=== PATIENT | male | born 1970 | race Caucasian/White ===

== ENCOUNTER → 2016-10-22 | Outpatient (CLI) | payer BC ==
[2016-10-22 17:00] LABS: CHLORIDE,CL 107 mmol/L (98-110); SODIUM,NA 140 mmol/L (136-146)
== END ==
LOC: MW.CHFP 16:24
PROVIDERS: ATTEND Nurse Practitioner Family
DX: R10.9 Unspecified abdominal pain (principal)
CPT/HCPCS: 36415; 80053; 82150; 83516; 83690; 84443; 85027; 86677

== ENCOUNTER → 2016-10-23 | Outpatient (CLI) | payer BC | LOC: MW.CHFP 14:45 | PROVIDERS: ATTEND Nurse Practitioner Family | DX: R19.5 Other fecal abnormalities (principal) | CPT/HCPCS: 82270; 83630; 87046; 87328; 87329; 87899 ==

== ENCOUNTER → 2016-10-24 | Outpatient (CLI) | payer BC | LOC: MW.CHFP 13:55 | PROVIDERS: ATTEND Nurse Practitioner Family | DX: R19.5 Other fecal abnormalities (principal) | CPT/HCPCS: 82272 ==

== ENCOUNTER 2017-11-24 22:20 | Emergency (ER) | payer SELFPAY ==
[2017-11-24] MEDS ORDERED: methylPREDNISolone Sodium Succinate 125 MG/2 ML SDV IM ONE (22:48)
[2017-11-24] MEDS ORDERED: Albuterol/Ipratropium 3.0-0.5 MG/3 ML Neb Soln NEB ONE (22:48)
--- NOTE | 2017-11-24 22:48 | EDM.PDOC ---
ED HPI GENERAL MEDICAL PROBLEM - General Chief Complaint: Respiratory Problem Stated Complaint: ASTHMA ATTACK Time Seen by Provider: 11/24/17 22:48 Source of Information: Reports: Patient - History of Present Illness INITIAL COMMENTS - FREE TEXT/NARRATIVE: HISTORY AND PHYSICAL: History of present illness: []Patient with known asthma who presents with asthma exacerbation chest is tight short of breath with exertion no chest pain or diaphoresis no fever nausea vomiting chills sweats Review of systems: As per history of present illness and below otherwise all systems reviewed and negative. Past medical history: As per history of present illness and as reviewed below otherwise noncontributory. Surgical history: As per history of present illness and as reviewed below otherwise noncontributory. Social history: No reported history of drug or alcohol abuse. Family history: As per history of present illness and as reviewed below otherwise noncontributory. Physical exam: HEENT: Atraumatic, normocephalic, pupils reactive, negative for conjunctival pallor or scleral icterus, mucous membranes moist, throat clear, neck supple, nontender, trachea midline. Lungs: Clear to auscultation, breath sounds equal bilaterally, chest nontender. post DuoNeb and Solu-Medrol Heart: S1S2, regular, negative for clicks, rubs, or JVD. Abdomen: Soft, nondistended, nontender. Negative for masses or hepatosplenomegaly. Negative for costovertebral tenderness. Pelvis: Stable nontender. Genitourinary: Deferred. Rectal: Deferred. Extremities: Atraumatic, negative for cords or calf pain. Neurovascular unremarkable. Neuro: Awake, alert, oriented. Cranial nerves II through XII unremarkable. Cerebellum unremarkable. Motor and sensory unremarkable throughout. Exam nonfocal. Diagnostics: [ chest 1 view ] Therapeutics: [ DuoNeb Solu-Medrol 125 mg IM ]DuoNeb 4 times a day #40 no refill Medrol Dosepak R PW Patient has HFA All up with primary care as needed Impression: [ asthma exacerbation resolved -patient much improved posttreatment ] Definitive disposition and diagnosis as appropriate pending reevaluation and review of above. head Pain Score (Numeric/FACES): 8 - Related Data Allergies Allergy/AdvReac Type Severity Reaction Status Date / Time No Known Allergies Allergy Verified 06/28/16 00:46 Home Meds: Home Meds Albuterol Sulfate [Proventil Hfa] 6.7 gm ASDIRECTED 06/28/16 [History] Past Medical History Respiratory History: Reports: Asthma - Past Surgical History HEENT Surgical History: Reports: Tonsillectomy Male Surgical History: Reports: Vasectomy Social & Family History - Family History Family Medical History: Noncontributory - Tobacco Use Smoking Status *Q: Never Smoker - Caffeine Use Caffeine Use: Reports: None - Alcohol Use Days Per Week of Alcohol Use: 5 Number of Drinks Per Day: 3 Total Drinks Per Week: 15 - Recreational Drug Use Recreational Drug Use: No - Living Situation & Occupation Occupation: Employed ED ROS GENERAL - Review of Systems Review Of Systems: ROS reveals no pertinent complaints other than HPI. ED EXAM, GENERAL - Physical Exam Exam: See Below Course - Vital Signs Last Recorded V/S: Last Vital Signs Temp 98.6 F 11/24/17 22:20 Pulse 100 11/24/17 23:18 Resp 19 11/24/17 23:18 BP 115/77 11/24/17 23:18 Pulse Ox 99 11/24/17 23:18 - Orders/Labs/Meds Orders: Active Orders 24 hr Category Date Time Status RT Aerosol Therapy [RC] ASDIRECTED Care 11/24/17 22:48 Active Chest 1V Frontal [CR] Stat Exams 11/24/17 22:48 Taken Meds: Medications Discontinued Medications Generic Name Dose Route Start Last Admin Trade Name Radha PRN Reason Stop Dose Admin Albuterol/Ipratropium 3 ml 11/24/17 22:48 11/24/17 23:12 Duoneb 3.0-0.5 Mg/3 Ml NEB 11/24/17 22:49 3 ml ONETIME ONE Administration Methylprednisolone Sodium Succinate 125 mg 11/24/17 22:48 11/24/17 23:08 Solu-Medrol IM 11/24/17 22:49 125 mg ONETIME ONE Administration Departure - Departure Time of Disposition: 23:26 Disposition: Home, Self-Care 01 Condition: Good Clinical Impression: Asthma exacerbation - Discharge Information Referrals: PCP,Unknown [Primary Care Provider] - Forms: ED Department Discharge Additional Instructions: The following information is given to patients seen in the emergency department who are being discharged to home. This information is to outline your options for follow-up care. We provide all patients seen in our emergency department with a follow-up referral. The need for follow-up, as well as the timing and circumstances, are variable depending upon the specifics of your emergency department visit. If you don't have a primary care physician on staff, we will provide you with a referral. We always advise you to contact your personal physician following an emergency department visit to inform them of the circumstance of the visit and for follow-up with them and/or the need for any referrals to a consulting specialist. The emergency department will also refer you to a specialist when appropriate. This referral assures that you have the opportunity for follow-up care with a specialist. All of these measure are taken in an effort to provide you with optimal care, which includes your follow-up. Under all circumstances we always encourage you to contact your private physician who remains a resource for coordinating your care. When calling for follow-up care, please make the office aware that this follow-up is from your recent emergency room visit. If for any reason you are refused follow-up, please contact the [facility] emergency department at and asked to speak to the emergency department charge nurse. - My Orders Last 24 Hours: My Active Orders 11/24/17 22:48 RT Aerosol Therapy [RC] ASDIRECTED Chest 1V Frontal [CR] Stat - Assessment/Plan Last 24 Hours: My Active Orders 11/24/17 22:48 RT Aerosol Therapy [RC] ASDIRECTED Chest 1V Frontal [CR] Stat
[2017-11-24 23:18] VITALS: BP 115/77
--- NOTE | 2017-11-25 15:34 | CR ---
EXAM DATE: 11/24/17 PATIENT'S AGE: 47 Patient: SHINE WATSON Facility: [place], [place] Site . Site : [id number] Study: XRay Chest [id number] 11:18:10 PM Ordering Physician: Doctor Paz Final Report: INDICATION: sob TECHNIQUE: Chest 1 view. COMPARISON: 06/28/16 FINDINGS: Cardiovascular and mediastinum: Heart size and vasculature are normal in caliber and appearance. Mediastinum is within normal limits. Lungs and pleural space: Lungs are clear. No sign of infiltrate or mass. No sign of pleural effusion. No pneumothorax. Bones and soft tissues: No significant findings. IMPRESSION: Unremarkable chest. Dictated by: Van Monge MD @ 11/24/2017 23:30:23 (Electronic Signature) Report Signed by Proxy. MING
== END 2017-11-24 23:34 | disposition home or self-care (01) ==
LOC: MW.ED 22:20
DX: J45.901 Unspecified asthma with (acute) exacerbation (principal); Z79.899 Other long term (current) drug therapy
CPT/HCPCS: 71045; 94640; 96372; 99285; J2930

== ENCOUNTER 2021-08-24 17:31 | Observation (INO) | payer OTHER ==
[2021-08-24] MEDS ORDERED: Nitroglycerin 0.4 MG Tab.SL SL PRN (17:56)
[2021-08-24] MEDS ORDERED: Aspirin 81 MG Tab.Chew PO ONE (17:56)
[2021-08-24 18:35] LABS: BLOOD UREA NITROGEN,BUN 8 mg/dL (7.0-18.0); CARBON DIOXIDE,CO2 20.9 mmol/L (21.0-32.0); CHLORIDE,CL 89 mmol/L (98-107); GLUCOSE RANDOM 99 mg/dL (74-106); LIPASE 69 U/L (73-393); POTASSIUM,K 3.5 mmol/L (3.5-5.1); SODIUM,NA 124 mmol/L (136-148)
[2021-08-24] MEDS ORDERED: Sodium Chloride 0.9% 1,000 ML IV ONE (18:52)
[2021-08-24] MEDS ORDERED: Calcium Carbonate 500 MG Tab.Chew PO ONE (18:55)
[2021-08-24] MEDS ORDERED: Thiamine 100 MG in Sodium Chloride 0.9% 100 ML IV SCH (21:00)
[2021-08-24] MEDS ORDERED: LORazepam 2 MG/ML SDV IVPUSH PRN (21:02)
[2021-08-24 21:25] LABS: BLOOD UREA NITROGEN,BUN 7 mg/dL (7.0-18.0); CARBON DIOXIDE,CO2 22.6 mmol/L (21.0-32.0); CHLORIDE,CL 94 mmol/L (98-107); GLUCOSE RANDOM 94 mg/dL (74-106); POTASSIUM,K 4.6 mmol/L (3.5-5.1); SODIUM,NA 127 mmol/L (136-148)
[2021-08-24] MEDS ORDERED: Thiamine 200 MG/2 ML MDV IVPUSH ONE (22:20)
[2021-08-24] MEDS: Folic Acid 1 MG Tab PO SCH (22:35)
[2021-08-25 00:59] LABS: BLOOD UREA NITROGEN,BUN 7 mg/dL (7.0-18.0); CARBON DIOXIDE,CO2 27.9 mmol/L (21.0-32.0); CHLORIDE,CL 100 mmol/L (98-107); GLUCOSE RANDOM 84 mg/dL (74-106); POTASSIUM,K 4.7 mmol/L (3.5-5.1); SODIUM,NA 134 mmol/L (136-148)
[2021-08-25 07:02] LABS: BLOOD UREA NITROGEN,BUN 6 mg/dL (7.0-18.0); CARBON DIOXIDE,CO2 23.3 mmol/L (21.0-32.0); CHLORIDE,CL 101 mmol/L (98-107); GLUCOSE RANDOM 78 mg/dL (74-106); POTASSIUM,K 3.9 mmol/L (3.5-5.1); SODIUM,NA 134 mmol/L (136-148)
[2021-08-25] MEDS: Folic Acid 1 MG Tab PO SCH (08:02)
[2021-08-25] MEDS ORDERED: Albuterol/Ipratropium 3.0-0.5 MG/3 ML Neb Soln NEB PRN (08:39)
[2021-08-25] MEDS ORDERED: Acetaminophen 325 MG Tab PO PRN (08:39)
[2021-08-25] MEDS ORDERED: Ondansetron 4 MG/2 ML SDV IVPUSH PRN (08:39)
[2021-08-25] MEDS ORDERED: Ondansetron 4 MG Tab.DIS PO PRN (08:39)
[2021-08-25] MEDS ORDERED: Albuterol 8 GM Inhaler INH PRN (08:42)
[2021-08-25] MEDS ORDERED: Pantoprazole 40 MG in Sodium Chloride 0.9% 10 ML IVPUSH SCH (09:00)
[2021-08-25] MEDS ORDERED: Enoxaparin 40 MG/0.4 ML Syringe SUBCUT SCH (09:00)
[2021-08-25 12:09] VITALS: BP 118/86; PULSE 71
[2021-08-25] MEDS ORDERED: Thiamine 200 MG/2 ML MDV IVPUSH SCH (18:00)
[2021-08-25] MEDS ORDERED: Montelukast 10 MG Tab PO SCH (21:00)
== END 2021-08-25 14:45 | disposition home or self-care (01) ==
LOC: MW.ED 17:31 → MW.MS 19:52
PROVIDERS: ADMIT Internal Medicine; ATTEND Internal Medicine
DX: R07.89 Other chest pain (principal); E87.1 Hypo-osmolality and hyponatremia; U07.1 COVID-19; J32.9 Chronic sinusitis, unspecified; J45.909 Unspecified asthma, uncomplicated; F10.20 Alcohol dependence, uncomplicated; Z79.899 Other long term (current) drug therapy; Z98.890 Other specified postprocedural states
CPT/HCPCS: 36415; 71045; 80048; 80053; 83690; 83735; 84100; 84484; 85025; 87635; 93005; 96372; 96374; 96375; 99285; A9270; C9113; G0378; J1650; J3411; J7030; U0002

== ENCOUNTER 2024-08-11 08:37 | Emergency (ER) | payer OTHER ==
[2024-08-11 09:24] VITALS: PULSE 84
[2024-08-11] MEDS: Losartan 50 MG Tab PO ONE (10:51)
[2024-08-11 10:53] VITALS: BP 164/98
[2024-08-11 10:53] LABS: BASOPHILS ABSOLUTE AUTO 0.06 K/uL (0.00-0.20); BASOPHILS PERCENT AUTO 0.7 % (0.0-1.0); EOSINOPHILS ABSOLUTE AUTO 0.06 K/uL (0.00-0.45); EOSINOPHILS PERCENT AUTO 0.7 % (0.0-6.0); HEMATOCRIT 46.2 % (42.0-52.0); HEMOGLOBIN 16.5 g/dL (14.0-18.0); IMMATURE GRAN ABSOLUTE AUTO 0.01 K/uL (0.00-0.05); IMMATURE GRAN PERCENT AUTO 0.1 % (0.0-0.4); LYMPHOCYTES ABSOLUTE AUTO 0.59 K/uL (1.00-4.80); LYMPHOCYTES PERCENT AUTO 6.7 % (24.0-44.0); MEAN CORPUSCULAR HEMOGLOBIN 31.2 pg (28.0-32.0); MEAN CORPUSCULAR HGB CONC 35.7 g/dL (32.0-36.0); MEAN CORPUSCULAR VOLUME 87.3 fL (83.0-99.0); MEAN PLATELET VOLUME 8.1 fL (9.4-12.4); MONOCYTES ABSOLUTE AUTO 0.78 K/uL (0.00-0.80); MONOCYTES PERCENT AUTO 8.9 % (0.0-8.0); NEUTROPHILS PERCENT AUTO 82.9 % (41.0-71.0); PLATELET COUNT,PLT 304 K/uL (150-400); RED BLOOD CELL COUNT 5.29 M/uL (4.52-5.90)
[2024-08-11 11:19] LABS: LIPASE 22 U/L (16-77)
[2024-08-11 11:26] LABS: A/G RATIO 0.9 (0.9-1.6); ALBUMIN 4.3 g/dL (3.4-5.0); BILIRUBIN TOTAL 2.3 mg/dL (0.2-1.0); CALCIUM 9.5 mg/dL (8.5-10.1); CARBON DIOXIDE,CO2 27.6 mmol/L (21.0-32.0); CREATININE 0.9 mg/dL (0.8-1.3); EST CRCL DRUG DOSING (CG) 86.64 mL/min; MAGNESIUM 2.3 mg/dL (1.8-2.4); POTASSIUM,K 4.3 mmol/L (3.5-5.1); TSH ULTRASENSITIVE 3.17 uIU/mL (0.36-3.74)
[2024-08-11] MEDS: Sodium Chloride 0.9% 1,000 ML IV ONE (12:09)
== END 2024-08-11 13:11 | disposition home or self-care (01) ==
LOC: MW.ED 08:37
DX: I10 Essential (primary) hypertension (principal); E86.0 Dehydration; Z91.148 Patient's other noncompliance with medication regimen for other reason; J45.909 Unspecified asthma, uncomplicated; Z79.899 Other long term (current) drug therapy
CPT/HCPCS: 36415; 71045; 80053; 83690; 83735; 84443; 84484; 85025; 87428; 93005; 96360; 99285; A9270; J7030